=== PATIENT | male | born 1980 | race African-American/Black ===

== ENCOUNTER 2019-06-04 22:17 | Emergency (ER) | payer OTHER ==
[~2019-06-04] VITALS: Ht 182.9 cm; Wt 143.2 kg
[~2019-06-04 22:17] MED LIST: HYDR-3980 PO; IBUP-1542 PO; NAPR-985 PO; OXYC5CAP17 PO; TAMS-14 PO; TIZA4CAP PO
[2019-06-04 22:30] VITALS: Ht 182.9 cm; Wt 143.2 kg
[2019-06-04] MEDS ORDERED: LORAZEPAM 2 MG INJ IV ONE (23:00)
[2019-06-04] MEDS ORDERED: HYDROmorphONE 0.5 MG/0.5 ML SYG IV STA (23:38)
[2019-06-05] MEDS ORDERED: HYDROmorphONE 0.5 MG/0.5 ML SYG IV STA (01:10)
[2019-06-05] MEDS ORDERED: ONDANSETRON 4 MG INJ IV STA (01:15)
[2019-06-05 02:24] VITALS: BP 145/110; PULSE 80; RESP 19
== END 2019-06-05 02:26 | disposition home or self-care (01) ==
LOC: E/R 22:17
DX: R07.89 Other chest pain (principal); F41.9 Anxiety disorder, unspecified; D64.9 Anemia, unspecified
CPT/HCPCS: 36415; 71045; 80048; 80307; 84484; 85025; 85378; 93005; 96374; 96375; 96376; J1170; J2060; J2405; Z7502